=== PATIENT | female | born 1945 | race Caucasian/White ===

== ENCOUNTER 2024-08-07 10:31 | Emergency (ER) | payer OTHER ==
--- NOTE | 2024-08-07 10:53 | EDPHYS ---
Physician Documentation [facility] Name: Lisa Orlando Age: 78 yrs Sex: Female : 1945 Arrival Date: 08/07/2024 Time: 10:31 Bed 5 Private MD: ED Physician Jye Velasquez HPI: 08/07 10:50 This 78 yrs old Female presents to ER via Ambulatory with complaints of Rash - All over.rn 10:50 The patient's rash thought to be caused by an unknown cause. The rash is located on the rn body diffusely. The rash can be described as erythematous, urticarial. Severity of symptoms: At their worst the symptoms were moderate in the emergency department the symptoms are unchanged. The patient has not experienced similar symptoms in the past. Patient reports rash all over. Was clearing out brush and working outside, thinks poison vikki or oak. Reports itching all over. No fever or chills. Using calamine lotion and sprays that are not getting rid of it.. Historical: - Allergies: 10:48 No Known Allergies; ko1 - Home Meds: 10:48 Hydrochlorothiazide Oral [Active]; levothyroxine oral [Active]; ko1 - PMHx: 10:48 Hypertensive disorder; Hypothyroidism; ko1 - PSHx: 10:50 None; ko1 - Immunization history:: Adult Immunizations up to date. - Infectious Disease History:: Denies. - Social history:: Smoking status: Patient denies any tobacco usage or history of. - Family history:: not pertinent. - Hospitalizations: : No recent hospitalization is reported. ROS: 10:50 Constitutional: Negative for fever, chills, and weight loss, Cardiovascular: Negative rn for chest pain, palpitations, and edema, Respiratory: Negative for shortness of breath, cough, wheezing, and pleuritic chest pain, Skin: Positive for rash and itching Exam: 10:50 Constitutional: This is a well developed, well nourished patient who is awake, alert, rn and in no acute distress. Skin: Diffuse erythematous urticarial rash, worse on the trunk, no desquamation, no bulla Vital Signs: 10:47 BP 137 / 102; Pulse 79; Resp 16; Temp 98.1; Pulse Ox 97% on R/A; ko1 11:03 BP 142 / 73; Pulse 74; Resp 14; Pulse Ox 99% ; ko1 MDM: 10:35 Medical Screening Exam initiated rn 10:50 Differential diagnosis: allergic reaction, Contact dermatitis, poison vikki or [place]. rn Data reviewed: vital signs, nurses notes, and as a result, I will discharge patient. Counseling: I had a detailed discussion with the patient and/or guardian regarding the historical points, exam findings, and any diagnostic results supporting the discharge/admit diagnosis, the need for outpatient follow up, to return to the emergency department if symptoms worsen or persist or if there are any questions or concerns that arise at home. Special discussion: I discussed with the patient/guardian in detail that at this point there is no indication for admission to the hospital. It is understood, however, that if the symptoms persist or worsen the patient needs to return immediately for re-evaluation. Administered Medications: 10:57 Drug: MethylPREDNISolone Sodium Succinate IM 125 mg IM once Route: IM; Site: left ko1 gluteus; 11:04 Follow up: Response: No adverse reaction; Medication Administered at Departure ko1 Disposition Summary: 08/07/24 10:53 Discharge Ordered Notes: Location: Home rn Problem: new rn Symptoms: have improved rn Condition: Stable rn Diagnosis - Unspecified contact dermatitis due to plants, except food rn Followup: rn - With: Private Physician - When: As needed - Reason: Recheck today's complaints, Re-evaluation by your physician Discharge Instructions: - Discharge Summary Sheet rn - Contact Dermatitis rn - Poison Vikki Dermatitis rn - Poison [place] Dermatitis rn Forms: - Medication Reconciliation Form rn - Antibiotic associate attorney - Prescription Opioid Use rn - Patient Portal Instructions rn - Leadership Thank You Letter rn Prescriptions: - Medrol (Juan) 4 mg Oral Tablets, Dose Pack - take 1 tablet ORAL route as directed - follow package instructions; 1 packet; rn Refills: 0, Product Selection Permitted Signatures: Jey Velasquez MD MD rn Oliver, Kathy, RN RN ko
--- NOTE | 2024-08-07 10:53 | ER ---
Nurse's Notes [facility] Name: Lisa Orlando Age: 78 yrs Sex: Female : 1945 Arrival Date: 08/07/2024 Time: 10:31 Bed 5 Private MD: Diagnosis: Unspecified contact dermatitis due to plants, except food Presentation: 08/07 10:47 Chief complaint: Patient states: [place] [employer] and got ko1 into poison claire or something and its all over her body. Coronavirus screen: At this time, the client does not indicate any symptoms associated with coronavirus-19. Ebola Screen: No symptoms or risks identified at this time. Initial Sepsis Screen: Does the patient meet any 2 criteria? No. Patient's initial sepsis screen is negative. Does the patient have a suspected source of infection? No. Patient's initial sepsis screen is negative. Risk Assessment: Do you want to hurt yourself or someone else? Patient reports no desire to harm self or others. Onset of symptoms was August 07, 2024. 10:47 Method Of Arrival: Ambulatory ko1 10:47 Acuity: JAYMIE 3 ko1 Triage Assessment: 10:50 General: Appears in no apparent distress. Behavior is calm, cooperative, appropriate ko1 for age. Pain: Denies pain. EENT: No deficits noted. Neuro: No deficits noted. Cardiovascular: No deficits noted. Respiratory: No deficits noted. GI: No deficits noted. : No deficits noted. Derm: Rash noted that is red, on all over. Musculoskeletal: No deficits noted. Historical: - Allergies: 10:48 No Known Allergies; ko1 - Home Meds: 10:48 Hydrochlorothiazide Oral [Active]; levothyroxine oral [Active]; ko1 - PMHx: 10:48 Hypertensive disorder; Hypothyroidism; ko1 - PSHx: 10:50 None; ko1 - Immunization history:: Adult Immunizations up to date. - Infectious Disease History:: Denies. - Social history:: Smoking status: Patient denies any tobacco usage or history of. - Family history:: not pertinent. - Hospitalizations: : No recent hospitalization is reported. Screenin:51 [facility] ED Fall Risk Assessment (Adult) History of falling in the last 3 months, ko1 including since admission No falls in past 3 months (0 pts) Confusion or Disorientation No (0 pts) Intoxicated or Sedated No (0 pts) Impaired Gait No (0 pts) Mobility Assist Device Used No (0 pt) Altered Elimination No (0 pt) Score/Fall Risk Level 0 - 2 = Low Risk Oriented to surroundings, Maintained a safe environment, Educated pt \T\ family on fall prevention, incl call for assistance when getting out of bed, Assessed \T\ reinforced patient's understanding of fall precautions, Provided non-skid footwear, Hourly rounding (assess needs \T\ fall precautionary measures) done. Abuse screen: Denies threats or abuse. Denies injuries from another. Nutritional screening: No deficits noted. Tuberculosis screening: No symptoms or risk factors identified. Assessment: 10:51 Reassessment: see triage note. ko1 Vital Signs: 10:47 BP 137 / 102; Pulse 79; Resp 16; Temp 98.1; Pulse Ox 97% on R/A; ko1 11:03 BP 142 / 73; Pulse 74; Resp 14; Pulse Ox 99% ; ko1 ED Course: 10:35 Patient arrived in ED. ra3 10:35 Jey Velasquez MD is Attending Physician. rn 10:46 Reshma Redding, CHELSEA is Primary Nurse. ko1 10:48 Triage completed. ko1 10:50 Arm band placed on right wrist. Patient placed in an exam room, on a stretcher, on ko1 pulse oximetry, Patient notified of wait time. 10:51 Patient has correct armband on for positive identification. Bed in low position. Call ko1 light in reach. Side rails up X 1. Provided Education on: labs. Pulse ox on. NIBP on. Door closed. Noise minimized. Lights dimmed. Warm blanket given. Pillow given. 10:51 No provider procedures requiring assistance completed. ko1 11:03 Patient did not have IV access during this emergency room visit. ko1 Administered Medications: 10:57 Drug: MethylPREDNISolone Sodium Succinate IM 125 mg IM once Route: IM; Site: left ko1 gluteus; 11:04 Follow up: Response: No adverse reaction; Medication Administered at Departure ko1 Medication: 10:51 VIS not applicable for this client. ko1 Outcome: 10:53 Discharge ordered by . rn 11:03 Discharged to home ambulatory, with family, ko1 11:03 Condition: stable 11:03 Discharge instructions given to patient, family, Instructed on discharge instructions, follow up and referral plans. medication usage, Demonstrated understanding of instructions, follow-up care, medications, Prescriptions given X 1, 11:05 Patient left the ED. ko1 Signatures: Jey Velasquez MD MD rn Oliver, Kathy, RN RN ko1 Sunitha Larios ra3
[2024-08-07] MEDS ORDERED: METHYLPREDNISOLONE 125 MG INJ ONE (10:56)
[2024-08-07 11:10] VITALS: TEMP 98.1
[2024-08-07 11:12] VITALS: BP 142/73; O2SAT 99
== END 2024-08-07 11:05 | disposition home or self-care (01) ==
LOC: ER 10:31
DX: L25.5 Unspecified contact dermatitis due to plants, except food (principal)
CPT/HCPCS: 96372; 99284; J2919